=== PATIENT | male | born 1970 | race Caucasian/White ===

== ENCOUNTER 2017-05-18 18:12 | Emergency (ER) | payer OTHER ==
[2017-05-18 18:56] LABS: ABSOLUTE BASOPHIL COUNT 0 /CUMM (0.0-0.2); ABSOLUTE EOSINOPHIL COUNT 0.1 /CUMM (0.0-0.7); ABSOLUTE GRANULOCYTE CT 7.8 /CUMM (1.4-6.5); ABSOLUTE LYMPH COUNT 2.1 /CUMM (1.2-3.4); ABSOLUTE MONOCYTE COUNT 0.5 /CUMM (0.10-0.60); BASOPHIL % 0.3 % (0.0-2.0); EOSINOPHIL % 0.8 % (0-5); GRANULOCYTE % 74.2 % (42.2-75.2); HEMATOCRIT 39.6 % (42-52); MEAN CORPUSCULAR HGB 28.8 PG (27.0-31.0); MEAN CORPUSCULAR HGB CONC 33.5 G/DL (33.0-37.0); MEAN CORPUSCULAR VOLUME 85.8 FL (80.0-94.0); MEAN PLATELET VOLUME 7.4 FL (7.4-10.4); PLATELET COUNT 290 /CUMM (130-400); RBC DISTRIBUTION WIDTH 12.7 % (11.5-14.5); RED BLOOD CELL CT 4.62 /CUMM (4.70-6.10); WHITE BLOOD CELL COUNT 10.5 /CUMM (4.8-10.8)
[2017-05-18 19:18] LABS: PT 11.3 SEC (9.4-12.5); PTT 37 SEC (25-37)
--- NOTE | 2017-05-18 20:17 | ED HEADACHE COMPLAINT ---
History of Present Illness General Chief Complaint: Headache Stated Complaint: MIGRAINE X 4DAYS, WORST FELIZ PT HAS EVER HAD Source: patient Exam Limitations: no limitations Vital Signs & Intake/Output Vital Signs & Intake/Output Vital Signs Date Time Temp Pulse Resp B/P B/P Pulse O2 O2 Flow FiO2 Mean Ox Delivery Rate 05/18 2006 68 20 103/57 99 Room Air 05/18 1824 97.1 78 18 126/78 98 Room Air Allergies Coded Allergies: No Known Allergies (05/18/17) Triage Note: 46 YEAR OLD MALE COMES TO TRIAGE WITH COMPLAINTS OF BILATERAL QUAKER AREA PAIN, SUDDEN ONSET 4 DAYS AGO WHEN HE WAS STRAINING TO HAVE A BOWEL MOVEMENT, PAIN HAS BEEN CONSTANT, VOMITTED X 2 , DIFFICULTY SLEEPING. DENIES VISION CHANGES Triage Nurses Notes Reviewed? yes HPI: Patient presents for evaluation of a bitemporal "migraine" headache that began about 4 days ago. The patient describing a severe constant throbbing bitemporal headache but nothing seems to make feel better. Patient says he vomited the day before yesterday and yesterday but has had no nausea or vomiting today. The headache was sudden in onset. Patient denies any significant family history of intracranial issues such as aneurysm. He denies drug use. Past History Travel History Traveled to [place] past 21 day No Medical History Any Pertinent Medical History? see below for history Neurological: migraine EENT: NONE Cardiovascular: hypertension, hyperlipidemia Respiratory: NONE Gastrointestinal: colitis Hepatic: NONE Renal: NONE Musculoskeletal: NONE Psychiatric: anxiety Endocrine: NONE Blood Disorders: NONE Cancer(s): NONE REBAR BENDER/Reproductive: NONE Surgical History Surgical History: non-contributory Psychosocial History What is your primary language Lithuanian Tobacco Use: Never used ETOH Use: denies use Illicit Drug Use: denies illicit drug use Family History Hx Contributory? No Review of Systems Review of Systems Constitutional: Reports: no symptoms. Eyes: Reports: no symptoms. Ears, Nose, Throat, Mouth: Reports: no symptoms. Respiratory: Reports: no symptoms. Cardiovascular: Reports: no symptoms. Gastrointestinal/Abdominal: Reports: no symptoms. Genitourinary: Reports: no symptoms. Musculoskeletal: Reports: no symptoms. Skin: Reports: no symptoms. Neurological/Psychological: Reports: see HPI. Hematologic/Endocrine: Reports: no symptoms. Endocrine: Reports: no symptoms. Immunologic/Allergic: Reports: no symptoms. All Other Systems: Reviewed and Negative Physical Exam Physical Exam Cranial Nerves: SEE BELOW Comments: Gen.: Well-nourished, well-developed, no acute respiratory distress. Head: Normocephalic, atraumatic. Nontender over temples Face: Nontender to percussion over the sinuses Eyes: Normal inspection bilaterally, PERRLA, EOMI Ears: Normal inspection bilaterally Nose: Normal inspection Throat/mouth : Moist mucosa Neck: Supple, full range of motion, no goiter, no Kernig's or Brudzinski sign Lungs: Quiet respirations Back: Normal range of motion Extremities: Normal range of motion grossly, equal radial pulses, no cyanosis clubbing or edema of upper extremities, unable to test Babinski's due to extreme ticklishness Neurologic: Cranial nerves 2 through 12 intact, speech is clear, no dysmetria Skin: warm and dry Psychiatric: Calm, cooperative, no apparent delusions or hallucinations Core Measures Sepsis Present: No Sepsis Focused Exam Completed? No Progress Differential Diagnosis: cluster FELIZ, IC mass/tumor, intracranial Hem., migraine FELIZ, musculoskeletal pain, sinusitis, subarach. Hem., tension FELIZ, temporal arteritis, viral cephalgia Plan of Care: Orders Procedure Date/time Status PARTIAL THROMBOPLASTIN TIME 05/19 1827 Complete PROTHROMBIN TIME 05/19 1827 Complete COMPREHENSIVE METABOLIC PANEL 05/19 1827 Complete CBC WITHOUT DIFFERENTIAL 05/19 1827 Complete Current Medications Sig/Juhi Start time Last Medication Dose Stop Time Status Admin Acetaminophen 1,000 MG ONCE ONE 05/18 2114 UNVr (Ofirmev) 05/18 2128 N/A 1 UNIT (No Carrier) Laboratory Tests 05/18/17 1840: Anion Gap 14, Estimated GFR > 60, BUN/Creatinine Ratio 18.0, Glucose 141 H, Calcium 9.3, Total Bilirubin 0.5, AST 24, ALT 31, Alkaline Phosphatase 59, Total Protein 7.1, Albumin 4.2, Globulin 2.9, Albumin/Globulin Ratio 1.4, PT 11.3, INR 1.04, APTT 37, CBC w Diff NO MAN DIFF REQ, RBC 4.62 L, MCV 85.8, MCH 28.8, MCHC 33.5, RDW 12.7, MPV 7.4, Gran % 74.2, Lymphocytes % 19.6 L, Monocytes % 5.1, Eosinophils % 0.8, Basophils % 0.3, Absolute Granulocytes 7.8 H, Absolute Lymphocytes 2.1, Absolute Monocytes 0.5, Absolute Eosinophils 0.1, Absolute Basophils 0 Diagnostic Imaging: Viewed by Me: CT Scan. Discussed w/RAD: CT Scan. Radiology Impression: PATIENT: ERVIN CONTEH PRESENT AGE: 46 PATIENT ACCOUNT NO: [id number] : 69 LOCATION: [facility] ORDERING PHYSICIAN: Greyson SYED SERVICE DATE: 05/18/17 EXAM TYPE: CAT - CT HEAD ANGIOGRAM EXAMINATION: CT ANGIOGRAM HEAD CLINICAL INFORMATION: Sudden onset headache 4 days ago. COMPARISON: None available. TECHNIQUE: Test bolus sequences followed by intravenous administration 94 mL of Optiray 320 intravenous contrast. Helical imaging was performed in the axial plane from the mediastinum to the skull vertex. Delayed postcontrast imaging of the head was also performed. The data was processed at the certified surgical technologist's workstation for generation of MIP sequences. Three-dimensional volume rendered reformatted images were also generated at an offline 3-D workstation. FINDINGS: There is a large 5 cm TV by 4.6 cm AP intraparenchymal hemorrhage involving the parasagittal frontal lobes and anterior cingulate gyri as well as a portion of the genu of the corpus callosum with surrounding edema. There is associated expansion in these areas resulting in partial effacement of the frontal horns bilaterally. There is no midline shift. Possible enhancing soft tissue along the anterior margin of the hematoma. There is local subarachnoid hemorrhage, also seen more remotely at the high right and left parasagittal convexities. There is no hydrocephalus. There are no acute territorial infarcts. There are no significant soft tissue findings. No acute osseous abnormalities The imaged left vertebral artery is hypoplastic and difficult to assess. The right vertebral artery and the basilar artery are patent and the basilar artery is hypoplastic. The intracranial internal carotid arteries and the anterior middle cerebral artery complexes are widely patent. No aneurysms are identified. No high flow vascular malformations are seen. IMPRESSION: - Large up to 5 cm intraparenchymal hemorrhage involving the parasagittal frontal lobes, the anterior cingulate gyri , and the genu of the corpus callosum with surrounding edema resulting in local sulcal effacement and partial effacement of the frontal horns bilaterally. Some higher density amorphous areas within the hematoma may reflect calcification or higher density blood products. There is also possible enhancing soft tissue along the anterior margin of the hematoma for which a MRI with and without IV contrast is recommended to exclude an underlying hemorrhagic mass lesion in this location such as a hemorrhagic GBM. - Small volume subarachnoid hemorrhage within a few high parasagittal sulci. - No definite aneurysms nor high flow vascular malformations. Diagnostic cerebral angiogram would be more sensitive in evaluation. Findings discussed with Dr. Barber at 8:23 PM on 05/18/2017. DICTATED BY: Aníbal Griffith MD DATE/TIME DICTATED:05/18/172013 SENIOR CONTROLS ANALYST:ALEC DATE/TIME TRANSCRIBED:05/18/172013 CONFIDENTIAL, DO NOT COPY WITHOUT APPROPRIATE AUTHORIZATION. <Electronically signed in Other Vendor System> SIGNED BY: Aníbal Griffith MD 05/18/172033 Comments: 05/18/2017 8:58:06 PM patient's case discussed with Dr. Kuhn who feels that he requires an emergent MRI scan. 05/18/2017 9:02:58 PM patient's case discussed with the transfer line, Drs. Herbert and Ruslan. Patient accepted in the ED to ED transfer. No need for antiepileptic medications at this time. Departure Departure Disposition: OTHER [facility] (ACUTE) Condition: Stable Clinical Impression Primary Impression: Intracranial bleed Referrals: Manny Rosenbaum MD (PCP/Family) Departure Forms: Customer Survey General Discharge Information
--- NOTE | 2017-05-18 20:34 | CT SCAN REPORT ---
EXAMINATION: CT ANGIOGRAM HEAD CLINICAL INFORMATION: Sudden onset headache 4 days ago. COMPARISON: None available. TECHNIQUE: Test bolus sequences followed by intravenous administration 94 mL of Optiray 320 intravenous contrast. Helical imaging was performed in the axial plane from the mediastinum to the skull vertex. Delayed postcontrast imaging of the head was also performed. The data was processed at the phlebotomy technologist's workstation for generation of MIP sequences. Three-dimensional volume rendered reformatted images were also generated at an offline 3-D workstation. FINDINGS: There is a large 5 cm TV by 4.6 cm AP intraparenchymal hemorrhage involving the parasagittal frontal lobes and anterior cingulate gyri as well as a portion of the genu of the corpus callosum with surrounding edema. There is associated expansion in these areas resulting in partial effacement of the frontal horns bilaterally. There is no midline shift. Possible enhancing soft tissue along the anterior margin of the hematoma. There is local subarachnoid hemorrhage, also seen more remotely at the high right and left parasagittal convexities. There is no hydrocephalus. There are no acute territorial infarcts. There are no significant soft tissue findings. No acute osseous abnormalities The imaged left vertebral artery is hypoplastic and difficult to assess. The right vertebral artery and the basilar artery are patent and the basilar artery is hypoplastic. The intracranial internal carotid arteries and the anterior middle cerebral artery complexes are widely patent. No aneurysms are identified. No high flow vascular malformations are seen. IMPRESSION: - Large up to 5 cm intraparenchymal hemorrhage involving the parasagittal frontal lobes, the anterior cingulate gyri, and the genu of the corpus callosum with surrounding edema resulting in local sulcal effacement and partial effacement of the frontal horns bilaterally. Some higher density amorphous areas within the hematoma may reflect calcification or higher density blood products. There is also possible enhancing soft tissue along the anterior margin of the hematoma for which a MRI with and without IV contrast is recommended to exclude an underlying hemorrhagic mass lesion in this location such as a hemorrhagic GBM. - Small volume subarachnoid hemorrhage within a few high parasagittal sulci. - No definite aneurysms nor high flow vascular malformations. Diagnostic cerebral angiogram would be more sensitive in evaluation. Findings discussed with Dr. Barber at 8:23 PM on 05/18/2017.
[2017-05-18 21:19] VITALS: BP 105/56
== END 2017-05-18 21:00 | disposition short-term general hospital (02) ==
LOC: ERH 18:12
PROVIDERS: Physician Assistant Medical
DX: I62.9 Nontraumatic intracranial hemorrhage, unspecified (principal)
CPT/HCPCS: 96374; 96375; 96376; J0131; J2765